=== PATIENT | female | born 1950 | race Caucasian/White ===

== ENCOUNTER → 2017-10-21 | Outpatient (CLI) | payer MEDICARE ==
[~2017-10-21] MED LIST: DENO60P SQ; LEVO50TA4 PO; LEVO75TA3 PO; NEXAVAR PO; VITA200013 PO
[2017-10-21 10:06] LABS: HEMATOCRIT 39.3 % (35.0-46.0); MEAN CELL VOLUME 88.2 FL (80.0-100.0); MEAN CORPUSCULAR HEMOGLOBIN 28.9 PG (27.0-34.0); MEAN CORPUSCULAR HGB CONC 32.8 % (32.0-36.0); PLATELET COUNT 178 TH/MM3 (150-450); RED BLOOD COUNT 4.46 MIL/MM3 (4.00-5.30); RED CELL DISTRIBUTION WIDTH 15.8 % (11.6-17.2); REVIEW FLAG FINAL; WHITE BLOOD COUNT 4.5 TH/MM3 (4.0-11.0)
[2017-10-21 10:27] LABS: ALT (GPT) 19 U/L (10-53); ANION GAP 4 MEQ/L (5-15); AST (GOT) 21 U/L (15-37); BICARBONATE 28.1 MEQ/L (21.0-32.0); BLOOD UREA NITROGEN 12 MG/DL (7-18); CHLORIDE 108 MEQ/L (98-107); GLOMERULAR FILTRATION RATE 62 ML/MIN (>89); GLUCOSE,FASTING 87 MG/DL (74-99); POTASSIUM 4.7 MEQ/L (3.5-5.1); SODIUM (NA) 140 MEQ/L (136-145)
[2017-10-21 10:35] LABS: ALKALINE PHOSPHATASE 57 U/L (45-117); FREE T4 1.25 NG/DL (0.76-1.46); HDL CHOLESTEROL 65.4 MG/DL (40.0-60.0); LDL CHOLESTEROL 170 MG/DL (0-99); LDL CHOLESTEROL DIRECT 170 MG/DL (0-99); TOTAL BILIRUBIN ADULT 0.5 MG/DL (0.2-1.0)
== END ==
LOC: PLAB 07:02
PROVIDERS: ATTEND Family Medicine
DX: R53.83 Other fatigue (principal); E78.4 Other hyperlipidemia; E03.8 Other specified hypothyroidism
CPT/HCPCS: 36415; 80053; 80061; 82306; 83721; 84439; 84443; 85027

== ENCOUNTER 2017-11-24 11:57 | Observation (INO) | payer MEDICARE ==
[2017-11-24] VITALS (10 sets, daily range): BP systolic 137–170; BP diastolic 74–94; PULSE 61–72; RESP 15–20; TEMP 97.6–98.1; O2SAT 94–100
[2017-11-24] MEDS ORDERED: SODIUM CHLORIDE 0.9% FLUSH 10 ML FLUSH IVF PRN (12:30)
[2017-11-24 12:47] LABS: AUTOMATED NEUTROPHIL # 2.5 TH/MM3 (1.8-7.7); BASOPHIL % 0.5 % (0.0-2.0); EOSINOPHIL # 0.1 TH/MM3 (0-0.4); EOSINOPHIL % 2.9 % (0.0-4.0); HEMATOCRIT 38.5 % (35.0-46.0); HEMOGLOBIN 12.5 GM/DL (11.6-15.3); LYMPH % 32.4 % (9.0-44.0); LYMPHOCYTE # 1.5 TH/MM3 (1.0-4.8); MEAN CELL VOLUME 86.9 FL (80.0-100.0); MEAN CORPUSCULAR HEMOGLOBIN 28.3 PG (27.0-34.0); MEAN CORPUSCULAR HGB CONC 32.5 % (32.0-36.0); MEAN PLATELET VOLUME 7.6 FL (7.0-11.0); MONO % 10.8 % (0.0-8.0); MONOCYTE # 0.5 TH/MM3 (0-0.9); NEUT % 53.4 % (16.0-70.0); PLATELET COUNT 163 TH/MM3 (150-450); RED BLOOD COUNT 4.43 MIL/MM3 (4.00-5.30); RED CELL DISTRIBUTION WIDTH 14.7 % (11.6-17.2); WHITE BLOOD COUNT 4.6 TH/MM3 (4.0-11.0)
[2017-11-24 12:52] LABS: CHLORIDE 104 MEQ/L (98-107); SODIUM (NA) 138 MEQ/L (136-145)
[2017-11-24 12:55] LABS: CALCIUM 8.6 MG/DL (8.5-10.1)
[2017-11-24 12:56] LABS: ALBUMIN 3.6 GM/DL (3.4-5.0); BICARBONATE 30.2 MEQ/L (21.0-32.0); BLOOD UREA NITROGEN 9 MG/DL (7-18); GLUCOSE,RANDOM 105 MG/DL (74-106); MAGNESIUM 2.2 MG/DL (1.5-2.5)
[2017-11-24 12:59] LABS: ALT (GPT) 18 U/L (10-53); AST (GOT) 22 U/L (15-37); CREATININE 0.92 MG/DL (0.50-1.00); GLOMERULAR FILTRATION RATE 61 ML/MIN (>89)
[2017-11-24 13:00] LABS: TOTAL BILIRUBIN ADULT 0.6 MG/DL (0.2-1.0)
[2017-11-24 13:01] LABS: TOTAL PROTEIN 7.2 GM/DL (6.4-8.2)
[2017-11-24 13:02] LABS: ALKALINE PHOSPHATASE 57 U/L (45-117)
[2017-11-24 13:04] LABS: TROPONIN I LESS THAN 0.02 NG/ML (0.02-0.05)
--- NOTE | 2017-11-24 13:04 | RADRPT ---
EXAM DATE/TIME: 11/24/2017 12:44 [facility] COMPARISON: No previous studies available for comparison. INDICATIONS : Cough and congestion for 5 days. MEDICAL HISTORY : Renal cancer. SURGICAL HISTORY : Right kidney removed. ENCOUNTER: Initial ACUITY: 4 - 6 days PAIN SCORE: 2/10 LOCATION: Bilateral chest FINDINGS: A single view of the chest demonstrates the lungs to be symmetrically aerated without evidence of mas s, infiltrate or effusion. The cardiomediastinal contours are unremarkable. Osseous structures are intact. CONCLUSION: 1. No active disease. Esequiel Garcia MD on November 24, 2017 at 13:01 Board Certified Radiologist. This report was verified electronically.
--- NOTE | 2017-11-24 14:32 | PD ---
HPI Chief Complaint: Cardiac Complaint Time Seen by Provider: 12:27 Travel History International Travel<30 days: No Contact w/Intl Traveler<30days: No Traveled to known affect area: No History of Present Illness HPI 67-year-old female patient presents to the ER today with bilateral arm pain starting last night, now is currently only having pressure-like pains in the left arm from the elbow to the shoulder area. She does not know any exacerbating or alleviating factors. She denies any shortness of breath. She states it feels like an ache and is currently a 3 out of 10. She denies any nausea, vomiting, or other symptoms. She does not remember any injuries. Modifying Factors: None Associated Signs & Symptoms: Bilateral arm pain, pressure-like, 3 out of 10 Risk Factors: Hypertension, high cholesterol PFSH Past Medical History Heart Rhythm Problems: No Cancer: Yes (Renal cell carcinoma) Cardiovascular Problems: No High Cholesterol: Yes Chemotherapy: Yes (ORAL MED) Chest Pain: No Congestive Heart Failure: No Diabetes: No Endocrine: No Gastrointestinal Disorders: Yes GERD: Yes Genitourinary: Yes Hepatitis: No Hiatal Hernia: No Hypertension: Yes (HX NOT ON MED; DUE TO CHEMO) Immune Disorder: No Implanted Vascular Access Dvce: No Kidney Stones: No Musculoskeletal: No Neurologic: No Psychiatric: No Reproductive: No Respiratory: No Radiation Therapy: No Renal Failure: Yes Thyroid Disease: No Past Surgical History Abdominal Surgery: No Cardiac Surgery: No Cholecystectomy: Yes Ear Surgery: No Endocrine Surgery: No Eye Surgery: No Genitourinary Surgery: Yes (APRIL 2011 RIGHT NEPHRECTOMY) Gynecologic Surgery: Yes (LAP TUBAL LIGATION) Neurologic Surgery: No Oral Surgery: No Pacemaker: No Thoracic Surgery: Yes (May 2011 4 Lymph nodes removed ) Other Surgery: Yes Social History Alcohol Use: No Tobacco Use: No Substance Use: No Allergies-Medications (Allergen,Severity, Reaction): Coded Allergies: aspirin (Unverified Adverse Reaction, Intermediate, PT HAS ONLY ONE KIDNEY WAS TOLD NOT TO TAKE ASPIRIN, 06/30/17) Reported Meds & Prescriptions Reported Meds & Active Scripts Active Reported Vitamin D (Cholecalciferol) 2,000 Unit Cap 2,000 Mg PO DAILY Levothyroxine (Levothyroxine Sodium) 50 Mcg Tab 50 Mcg PO ONCE WEEKLY Levothyroxine (Levothyroxine Sodium) 75 Mcg Tab 75 Mcg PO 6 TIMES WEEKLY [Nexavar] 200 Mg PO DAILY Review of Systems Except as stated in HPI: all other systems reviewed are Neg Physical Exam Narrative GENERAL: Well-developed elderly white female patient currently in mild distress. Awake and oriented 3. SKIN: Focused skin assessment warm/dry. HEAD: Atraumatic. Normocephalic. EYES: Pupils equal and round. No scleral icterus. No injection or drainage. ENT: No nasal bleeding or discharge. Mucous membranes pink and moist. NECK: Trachea midline. No JVD. Supple. CARDIOVASCULAR: Regular rate and rhythm. No murmur appreciated. Pulses are present and equal bilaterally. RESPIRATORY: No accessory muscle use. Clear to auscultation. Breath sounds equal bilaterally. GASTROINTESTINAL: Abdomen soft, non-tender, nondistended. Hepatic and splenic margins not palpable. MUSCULOSKELETAL: No obvious deformities. No clubbing. No cyanosis. No edema. NEUROLOGICAL: Awake and alert. No obvious cranial nerve deficits. Motor grossly within normal limits. Normal speech. PSYCHIATRIC: Appropriate mood and affect; insight and judgment normal. Data Data Last Documented VS Vital Signs Date Time Temp Pulse Resp B/P (MAP) Pulse Ox O2 Delivery O2 Flow Rate FiO2 11/24/17 14:09 62 20 145/89 (107) 94 11/24/17 13:01 2.00 11/24/17 12:05 98.1 Orders Orders Ckmb (Isoenzyme) Profile (11/24/17 12:27) Complete Blood Count With Diff (11/24/17 12:27) Comprehensive Metabolic Panel (11/24/17 12:27) Magnesium (Mg) (11/24/17 12:27) Prothrombin Time / Inr (Pt) (11/24/17 12:27) Act Partial Throm Time (Ptt) (11/24/17 12:27) Troponin I (11/24/17 12:27) Chest, Single Ap (11/24/17 12:27) Ecg Monitoring (11/24/17 12:27) Bilateral Bp Monitoring (11/24/17 12:27) Iv Access Insert/Monitor (11/24/17 12:27) Oximetry (11/24/17 12:27) Oxygen Administration (11/24/17 12:27) Sodium Chloride 0.9% Flush (Ns Flush) (11/24/17 12:30) CKMB (11/24/17 12:30) CKMB% (11/24/17 12:30) Aspirin (Aspirin) (11/24/17 14:45) Admit Order (Ed Use Only) (11/24/17 15:09) Labs Laboratory Tests Test 11/24/17 12:30 White Blood Count 4.6 TH/MM3 Red Blood Count 4.43 MIL/MM3 Hemoglobin 12.5 GM/DL Hematocrit 38.5 % Mean Corpuscular Volume 86.9 FL Mean Corpuscular Hemoglobin 28.3 PG Mean Corpuscular Hemoglobin Concent 32.5 % Red Cell Distribution Width 14.7 % Platelet Count 163 TH/MM3 Mean Platelet Volume 7.6 FL Neutrophils (%) (Auto) 53.4 % Lymphocytes (%) (Auto) 32.4 % Monocytes (%) (Auto) 10.8 % Eosinophils (%) (Auto) 2.9 % Basophils (%) (Auto) 0.5 % Neutrophils # (Auto) 2.5 TH/MM3 Lymphocytes # (Auto) 1.5 TH/MM3 Monocytes # (Auto) 0.5 TH/MM3 Eosinophils # (Auto) 0.1 TH/MM3 Basophils # (Auto) 0.0 TH/MM3 CBC Comment DIFF FINAL Differential Comment Prothrombin Time 10.0 SEC Prothromb Time International Ratio 1.0 RATIO Activated Partial Thromboplast Time 27.8 SEC Blood Urea Nitrogen 9 MG/DL Creatinine 0.92 MG/DL Random Glucose 105 MG/DL Total Protein 7.2 GM/DL Albumin 3.6 GM/DL Calcium Level 8.6 MG/DL Magnesium Level 2.2 MG/DL Alkaline Phosphatase 57 U/L Aspartate Amino Transf (AST/SGOT) 22 U/L Alanine Aminotransferase (ALT/SGPT) 18 U/L Total Bilirubin 0.6 MG/DL Sodium Level 138 MEQ/L Potassium Level 4.2 MEQ/L Chloride Level 104 MEQ/L Carbon Dioxide Level 30.2 MEQ/L Anion Gap 4 MEQ/L Estimat Glomerular Filtration Rate 61 ML/MIN Total Creatine Kinase 164 U/L Creatine Kinase MB 1.3 NG/ML Troponin I LESS THAN 0.02 NG/ML MDM Medical Decision Making Medical Screen Exam Complete: Yes Emergency Medical Condition: Yes Medical Record Reviewed: Yes Interpretation(s) EKG shows sinus bradycardia at a rate of 54 bpm with T-wave inversions in 2 and aVF. No signs of significant ST elevations. Laboratory Tests Test 11/24/17 12:30 Monocytes (%) (Auto) 10.8 % (0.0-8.0) Anion Gap 4 MEQ/L (5-15) Estimat Glomerular Filtration Rate 61 ML/MIN (>89) Troponin I LESS THAN 0.02 NG/ML Last 24 hours Impressions Chest X-Ray 11/24/17 1227 Signed Impressions: Service Date/Time: Friday, November 24, 2017 12:44 - CONCLUSION: 1. No active disease. Esequiel Garcia MD Differential Diagnosis Bilateral arm pain: Atypical chest pains versus musculoskeletal versus anginal equivalent Narrative Course EKG did not show any signs of acute ST elevation ME, T-wave inversions notable in inferior leads. Cardiac enzymes are negative. She is not having any chest pains. However, there is concern that this could be an atypical chest pain or anginal equivalent my plan would be to admit her to chest pain center for further evaluation. Diagnosis Primary Impression: Atypical chest pain Admitting Information Admitting Physician Requests: Admit Marianne Emmanuel MD Nov 24, 2017 14:32
[2017-11-24] MEDS ORDERED: ASPIRIN 325 MG TAB PO ONE (14:45)
--- NOTE | 2017-11-24 16:26 | EKG ---
Date Performed: 11/24/2017 Time Performed: 12:05:03 PTAGE: 67 years EKG: SINUS BRADYCARDIA NONSPECIFIC T-WAVE ABNORMALITY BORDERLINE ECG PREVIOUS TRACING : 01/06/2012 06.50 Compared to prior tracing no significant change DOCTOR: Deangelo Trevino Interpretating Date/Time 11/24/2017 16:25:57
[2017-11-24] MEDS ORDERED: BISACODYL 10 MG SUPP RECTAL PRN (16:30)
[2017-11-24] MEDS ORDERED: SENNOSIDES 8.6 MG TAB PO PRN (16:30)
[2017-11-24] MEDS ORDERED: SODIUM CHLORIDE 0.9% FLUSH 10 ML FLUSH IV FLUSH PRN (16:30)
[2017-11-24] MEDS ORDERED: NALOXONE HCL 0.4 MG/ML AMP IV PUSH PRN (16:30)
--- NOTE | 2017-11-24 16:33 | HHI.HP ---
[facility] Primary Care Physician Gerardo Pleitez MD Admission Diagnosis Chest pain Diagnoses: (1) Atypical chest pain Diagnosis: Principal Chief Complaint: Bilateral upper arm pain Travel History International Travel<30 Days: No Contact w/Intl Traveler <30 Da: No Traveled to Known Affected Are: No History of Present Illness This is a pleasant 67-year-old female patient with unknown medical history of stage IV right renal cell carcinoma currently in remission, hyperlipidemia, hypertension and thyroid disease who presented to the ED with complaints of bilateral arm pain. Patient states that she was sitting on her couch this morning she developed pain in both arms between her elbow and shoulder area. She states that the pain in the right arm lasted roughly 15 minutes and the left arm was roughly around two hours. She denies any tingling or numbness in her arms or hands. Denies any associated chest pain or discomfort. Denies any associated nausea, vomiting, shortness of breath or diaphoresis. She denies any radiation of this pain up her neck or jaw or her back. Patient does state that she follows with the chiropractor once a week, gets adjusted as needed. She has also been undergoing massage therapy in the outpatient setting. Patient states that the pain this morning was characterized as an aching pain, rated a 3/10 on pain scale. Denies ever having this pain before. Patient does admit that she visited her PCP yesterday for an upper respiratory infection with complaints of sore throat and low-grade fevers and productive cough. Was prescribed cough medicine and sent home. Denies ever having any cardiac history , denies any previous stress testing. Patient does follow with Dr. Jimenez for her renal cell carcinoma, currently takes her daily chemotherapy pill and is in remission. Review of Systems Constitutional: COMPLAINS OF: Fever, Chills, DENIES: Fatigue Eyes: DENIES: Blurred vision Ears, nose, mouth, throat: DENIES: Vertigo Respiratory: COMPLAINS OF: Cough, Sputum production, DENIES: Shortness of breath Cardiovascular: DENIES: Chest pain, Palpitations Gastrointestinal: DENIES: Abdominal pain, Constipation, Diarrhea, Nausea, Vomiting Musculoskeletal: DENIES: Joint pain Psychiatric: DENIES: Anxiety Except as stated in HPI: all other systems reviewed are Neg Bilateral upper arm aching Past Family Social History Past Medical History Thyroid disease Renal cell carcinoma Hyperlipidemia Hypertension Past Surgical History Cholecystectomy Right nephrectomy Tubal ligation Lymph node removals Reported Medications Reported Meds & Active Scripts Active Reported Vitamin D (Cholecalciferol) 2,000 Unit Cap 2,000 Mg PO DAILY Levothyroxine (Levothyroxine Sodium) 50 Mcg Tab 50 Mcg PO ONCE WEEKLY Levothyroxine (Levothyroxine Sodium) 75 Mcg Tab 75 Mcg PO 6 TIMES WEEKLY [Nexavar] 200 Mg PO DAILY Allergies: Coded Allergies: aspirin (Unverified Adverse Reaction, Intermediate, PT HAS ONLY ONE KIDNEY WAS TOLD NOT TO TAKE ASPIRIN, 06/30/17) Active Ordered Medications Current Medications Medications (Trade) Dose Ordered Sig/Carley Route Start Time Stop Time Status Last Admin (NS Flush) 2 ml UNSCH PRN IVF 11/24/17 12:30 Family History Paternal aunt Maternal medical history not significant for any cardiovascular disease. Father did have history of kidney carcinoma, at the age of seventy[age]four years old. Social History Patient denies any current tobacco use, quit fifteen years ago. Does admit to occasional alcohol use. Denies any illicit drug use. Physical Exam Vital Signs Vital Signs Date Time Temp Pulse Resp B/P (MAP) Pulse Ox O2 Delivery O2 Flow Rate FiO2 11/24/17 15:27 69 20 151/79 (103) 98 11/24/17 14:09 62 20 145/89 (107) 94 11/24/17 13:01 68 20 140/86 (104) 100 145/94 (111) 11/24/17 13:01 2.00 11/24/17 12:31 98 11/24/17 12:05 98.1 65 20 170/86 (114) 98 Physical Exam GENERAL: is a well-nourished, well-developed patient, lying in bed in no apparent distress. SKIN: No rashes, ecchymoses or lesions. Warm and dry. HEAD: Atraumatic. Normocephalic. EYES: Pupils equal round and reactive. Extraocular motions intact. No scleral icterus. No injection or drainage. ENT: Nose without bleeding, purulent drainage or septal hematoma. Throat without erythema, tonsillar hypertrophy or exudate. Uvula midline. Airway patent. NECK: Trachea midline. No JVD. Supple. CARDIOVASCULAR: Regular rate and rhythm without murmurs, gallops, or rubs. No reproducible chest pain RESPIRATORY: Clear to auscultation. Breath sounds equal bilaterally. No wheezes , rales, or rhonchi. GASTROINTESTINAL: Abdomen soft, non-tender, nondistended. No guarding. MUSCULOSKELETAL: Extremities without clubbing, cyanosis, or edema. No joint tenderness, effusion, or edema noted. NEUROLOGICAL: Awake and alert. Cranial nerves II through XII intact. Motor and sensory grossly within normal limits. Five out of 5 muscle strength in all muscle groups. Normal speech. Laboratory Laboratory Tests Test 11/24/17 12:30 White Blood Count 4.6 Red Blood Count 4.43 Hemoglobin 12.5 Hematocrit 38.5 Mean Corpuscular Volume 86.9 Mean Corpuscular Hemoglobin 28.3 Mean Corpuscular Hemoglobin Concent 32.5 Red Cell Distribution Width 14.7 Platelet Count 163 Mean Platelet Volume 7.6 Neutrophils (%) (Auto) 53.4 Lymphocytes (%) (Auto) 32.4 Monocytes (%) (Auto) 10.8 Eosinophils (%) (Auto) 2.9 Basophils (%) (Auto) 0.5 Neutrophils # (Auto) 2.5 Lymphocytes # (Auto) 1.5 Monocytes # (Auto) 0.5 Eosinophils # (Auto) 0.1 Basophils # (Auto) 0.0 CBC Comment DIFF FINAL Differential Comment Prothrombin Time 10.0 Prothromb Time International Ratio 1.0 Activated Partial Thromboplast Time 27.8 Blood Urea Nitrogen 9 Creatinine 0.92 Random Glucose 105 Total Protein 7.2 Albumin 3.6 Calcium Level 8.6 Magnesium Level 2.2 Alkaline Phosphatase 57 Aspartate Amino Transf (AST/SGOT) 22 Alanine Aminotransferase (ALT/SGPT) 18 Total Bilirubin 0.6 Sodium Level 138 Potassium Level 4.2 Chloride Level 104 Carbon Dioxide Level 30.2 Anion Gap 4 Estimat Glomerular Filtration Rate 61 Total Creatine Kinase 164 Creatine Kinase MB 1.3 Troponin I LESS THAN 0.02 Result Diagram: 11/24/17 1230 11/24/17 1230 Imaging Last Impressions Chest X-Ray 11/24/17 1227 Signed Impressions: Service Date/Time: Friday, November 24, 2017 12:44 - CONCLUSION: 1. No active disease. Esequiel Garcia MD Septic Shock Reassessment Septic shock perfusion: reassessment completed Caprini VTE Risk Assessment Caprini VTE Risk Assessment: Mod/High Risk (score >= 2) Caprini Risk Assessment Model Point Value = 1 Point Value = 2 Point Value = 3 Point Value = 5 Age 41-60 Minor surgery BMI > 25 kg/m2 Swollen legs Varicose veins or History of unexplained or recurrent spontaneous Oral contraceptives or hormone replacement Sepsis (< 1 month) Serious lung disease, including pneumonia (< 1 month) Abnormal pulmonary function Acute myocardial infarction Congestive heart failure (< 1 month) History of inflammatory bowel disease Medical patient at bed rest Age 61-74 Arthroscopic surgery Major open surgery (> 45 min) Laparoscopic surgery (> 45 min) Malignancy Confined to bed (> 72 hours) Immobilizing plaster cast Central venous access Age >= 75 History of VTE Family history of VTE Factor V Leiden Prothrombin [id number] Lupus anticoagulant Anticardiolipin antibodies Elevated serum homocysteine Heparin-induced thrombocytopenia Other congenital or acquired thrombophilia Stroke (< 1 month) Elective arthroplasty Hip, pelvis, or leg fracture Acute spinal cord injury (< 1 month) Prophylaxis Regimen Total Risk Factor Score Risk Level Prophylaxis Regimen 0-1 Low Early ambulation 2 Moderate Order ONE of the following: *Sequential Compression Device (SCD) *Heparin 5000 units SQ BID 3-4 Higher Order ONE of the following medications: *Heparin 5000 units SQ TID *Enoxaparin/Lovenox 40 mg SQ daily (WT < 150 kg, CrCl > 30 mL/min) *Enoxaparin/Lovenox 30 mg SQ daily (WT < 150 kg, CrCl > 10-29 mL/min) *Enoxaparin/Lovenox 30 mg SQ BID (WT < 150 kg, CrCl > 30 mL/min) AND/OR *Sequential Compression Device (SCD) 5 or more Highest Order ONE of the following medications: *Heparin 5000 units SQ TID (Preferred with Epidurals) *Enoxaparin/Lovenox 40 mg SQ daily (WT < 150 kg, CrCl > 30 mL/min) *Enoxaparin/Lovenox 30 mg SQ daily (WT < 150 kg, CrCl > 10-29 mL/min) *Enoxaparin/Lovenox 30 mg SQ BID (WT < 150 kg, CrCl > 30 mL/min) AND *Sequential Compression Device (SCD) Assessment and Plan Problem List: (1) Atypical chest pain ICD Code: R07.89 - Other chest pain Status: Acute Plan: Likely secondary to cervical nerve impingement versus musculoskeletal in nature Patient has been admitted to the chest pain center. Currently denies any previous or present chest pain. Does complain of left arm achiness. Serial EKGs and serial troponins have been ordered for ruling out purposes. Initial troponin flat, continue to follow trend. EKG reviewed showing normal sinus rhythm with controlled heart rate, there is no small T-wave inversions in inferior leads. Aspirin was given in the ED. CBC and BMP reviewed, essentially unremarkable. Chest x-ray reviewed, no acute cardiopulmonary disease. We'll order a cervical x-ray to further evaluate, follow-up. If cardiac enzymes are and that patient will likely undergo a cardiac stress test in the a.m., to rule out any further ischemia. Supportive care. Supplemental O2 as needed. Patient is stable at this time and agreeable to the plan. (2) Hypertension ICD Code: I10 - Essential (primary) hypertension Plan: Patient states that she does not take any medicines for her high blood pressure and has been diet controlled. Patient did present with hypertension, systolic in the 170s. Will continue to monitor, may be likely due to pain. When necessary clonidine available as needed. Monitor BP trends. DVT prophylaxis: SCDs. Diana Sandoval Nov 24, 2017 16:33
[2017-11-24] MEDS ORDERED: ACETAMINOPHEN 325 MG TAB PO PRN (17:00)
--- NOTE | 2017-11-24 17:30 | RADRPT ---
EXAM DATE/TIME: 11/24/2017 17:07 [facility] COMPARISON: No previous studies available for comparison. INDICATIONS : Neck pain that moves into both arms for 2 months. MEDICAL HISTORY : None. INEZ osteopenia with no underlying bony abnormality. GICAL HISTORY : None. ENCOUNTER: Initial ACUITY: 2 months PAIN SCORE: 4/10 LOCATION: Cervical. FINDINGS: Five view examination was performed. There is normal alignment and curvature of the vertebral bodies down to the level of C7. No evidence of fracture or subluxation. Vertebral body height is normal. The disc spaces are maintained. The prevertebral soft tissues are of normal thickness. The atlanto -axial articulation is intact. The bony neural foramen are patent bilaterally. There is mild osteope rachid. Mild calcifications are noted in the right carotid arteries. CONCLUSION: 1. Osteopenia with no underlying bony abnormality. 2. The disc spaces are well preserved and the neural foramina appear patent. 3. Mild calcification right carotid artery. Luisito Gallegos MD on November 24, 2017 at 17:25 Board Certified Radiologist. This report was verified electronically.
[2017-11-24] MEDS ORDERED: ONDANSETRON HCL 4 MG/2 ML VIAL IVP PRN (18:00)
[2017-11-24] MEDS ORDERED: guaiFENesin/CODEINE SYRUP 200 MG/20 MG/10 ML CUP PO PRN (18:45)
[2017-11-24 19:23] LABS: TROPONIN I LESS THAN 0.02 NG/ML (0.02-0.05)
[2017-11-24] MEDS: DOCUSATE SODIUM 50 MG/SENNA 8.6 MG TAB PO SCH ×2 (21:00→21:04)
[2017-11-24] MEDS ORDERED: [UNRECOGNIZED DRUG - OTHER] PO SCH ×2 (21:00)
[2017-11-24] MEDS ORDERED: MAGNESIUM HYDROXIDE SUSP 30 ML CUP PO PRN (21:00)
[2017-11-24] MEDS ORDERED: SORAFENIB PO SCH ×2 (21:00)
[2017-11-24] MEDS: SODIUM CHLORIDE 0.9% FLUSH 10 ML FLUSH IV FLUSH SCH (21:04)
[2017-11-24 22:40] LABS: TROPONIN I LESS THAN 0.02 NG/ML (0.02-0.05)
[2017-11-25] VITALS: BP 116/85; PULSE 66; RESP 20; TEMP 97.6; O2SAT 99
[2017-11-25 04:00] VITALS: BP 141/87; PULSE 67; RESP 20; TEMP 97.8; O2SAT 98
[2017-11-25 05:42] LABS: CHLORIDE 106 MEQ/L (98-107); SODIUM (NA) 141 MEQ/L (136-145)
[2017-11-25 05:46] LABS: CALCIUM 8.8 MG/DL (8.5-10.1)
[2017-11-25 05:47] LABS: ALBUMIN 3.4 GM/DL (3.4-5.0); BICARBONATE 28.8 MEQ/L (21.0-32.0); BLOOD UREA NITROGEN 13 MG/DL (7-18); GLUCOSE,RANDOM 92 MG/DL (74-106)
[2017-11-25 05:50] LABS: ALT (GPT) 15 U/L (10-53); AST (GOT) 21 U/L (15-37); CREATININE 0.91 MG/DL (0.50-1.00); GLOMERULAR FILTRATION RATE 62 ML/MIN (>89)
[2017-11-25 05:52] LABS: TOTAL BILIRUBIN ADULT 0.6 MG/DL (0.2-1.0)
[2017-11-25 05:53] LABS: ALKALINE PHOSPHATASE 55 U/L (45-117)
[2017-11-25] MEDS ORDERED: LEVOTHYROXINE SODIUM 75 MCG TAB PO SCH (06:00)
[2017-11-25 07:30] VITALS: BP 145/82; PULSE 61; RESP 20; TEMP 97.5; O2SAT 97
[2017-11-25 08:22] VITALS: O2SAT 98
[2017-11-25] MEDS: DOCUSATE SODIUM 50 MG/SENNA 8.6 MG TAB PO SCH (09:00)
[2017-11-25] MEDS: SODIUM CHLORIDE 0.9% FLUSH 10 ML FLUSH IV FLUSH SCH (09:00)
--- NOTE | 2017-11-25 09:13 | EKG ---
Date Performed: 11/24/2017 Time Performed: 21:24:53 PTAGE: 67 years EKG: Sinus rhythm NONSPECIFIC ST & T-WAVE ABNORMALITY BORDERLINE ECG PREVIOUS TRACING : 11/24/2017 17.03 Since previous tracing, no significant change noted DOCTOR: Otf Aguero Interpretating Date/Time 11/25/2017 09:12:12
--- NOTE | 2017-11-25 09:21 | EKG ---
Date Performed: 11/24/2017 Time Performed: 17:03:29 PTAGE: 67 years EKG: Sinus rhythm NONSPECIFIC T-WAVE ABNORMALITY BORDERLINE ECG PREVIOUS TRACING : 11/24/2017 12.05 Since previous tracing, no significant change noted DOCTOR: Otf Aguero Interpretating Date/Time 11/25/2017 09:19:02
--- NOTE | 2017-11-25 09:25 | HHI.PR ---
Subjective Remarks Follow up cardiac complaint. Patient seen and examined, lying comfortably in bed. Denies any chest pain or bilateral upper arm pain. Denies any shortness of breath. Denies any acute events overnight. Slept well. Afebrile. Vital signs stable. Cardiac treadmill stress test performed, images sent over to cardiology just call, no ischemia noted. Objective Vitals Vital Signs Date Time Temp Pulse Resp B/P (MAP) Pulse Ox O2 Delivery O2 Flow Rate FiO2 11/25/17 08:22 98 21 11/25/17 07:30 97.5 61 20 145/82 (103) 97 11/25/17 04:00 97.8 67 20 141/87 (105) 98 11/25/17 00:00 97.6 66 20 116/85 (95) 99 11/24/17 20:00 97.6 61 20 140/80 (100) 94 11/24/17 20:00 61 11/24/17 19:30 98 21 11/24/17 17:48 98 21 11/24/17 17:27 11/24/17 16:44 72 20 145/91 (109) 96 11/24/17 16:00 97.7 68 15 137/74 (95) 97 11/24/17 15:27 69 20 151/79 (103) 98 11/24/17 14:09 62 20 145/89 (107) 94 11/24/17 13:01 68 20 140/86 (104) 100 145/94 (111) 11/24/17 13:01 2.00 11/24/17 12:31 98 11/24/17 12:05 98.1 65 20 170/86 (114) 98 I/O 11/24/17 11/24/17 11/24/17 11/25/17 11/25/17 11/25/17 07:00 15:00 23:00 07:00 15:00 23:00 Intake Total 60 ml Balance 60 ml Intake Oral 60 ml # Voids 1 # Bowel Movements 0 Result Diagram: 11/24/17 1230 11/25/17 0450 Imaging Last Impressions Chest X-Ray 11/24/17 1227 Signed Impressions: Service Date/Time: Friday, November 24, 2017 12:44 - CONCLUSION: 1. No active disease. Esequiel Garcia MD Cervical Spine X-Ray 11/24/17 0000 Signed Impressions: Service Date/Time: Friday, November 24, 2017 17:07 - CONCLUSION: 1. Osteopenia with no underlying bony abnormality. 2. The disc spaces are well preserved and the neural foramina appear patent. 3. Mild calcification right carotid artery. Luisito Gallegos MD Objective Remarks GENERAL: is a well-nourished, well-developed patient, lying in bed in no apparent distress. SKIN: No rashes, ecchymoses or lesions. Warm and dry. HEAD: Atraumatic. Normocephalic. EYES: Pupils equal round and reactive. Extraocular motions intact. No scleral icterus. No injection or drainage. ENT: Nose without bleeding, purulent drainage or septal hematoma. Throat without erythema, tonsillar hypertrophy or exudate. Uvula midline. Airway patent. NECK: Trachea midline. No JVD. Supple. CARDIOVASCULAR: Regular rate and rhythm without murmurs, gallops, or rubs. No reproducible chest pain RESPIRATORY: Clear to auscultation. Breath sounds equal bilaterally. No wheezes , rales, or rhonchi. GASTROINTESTINAL: Abdomen soft, non-tender, nondistended. No guarding. MUSCULOSKELETAL: Extremities without clubbing, cyanosis, or edema. No joint tenderness, effusion, or edema noted. NEUROLOGICAL: Awake and alert. Cranial nerves II through XII intact. Motor and sensory grossly within normal limits. Five out of 5 muscle strength in all muscle groups. Normal speech. A/P Problem List: (1) Atypical chest pain ICD Code: R07.89 - Other chest pain Status: Acute Plan: Likely secondary to musculoskeletal in nature Patient has been admitted to the chest pain center. Currently denies any previous or present chest pain. Denies any arm achiness or pain. Serial EKGs and serial troponins have been ordered for ruling out purposes. Serial troponins flat. EKG reviewed showing normal sinus rhythm with controlled heart rate, there are some T-wave inversions in inferior leads. Aspirin was given in the ED. CBC and BMP reviewed, essentially unremarkable. Chest x-ray reviewed, no acute cardiopulmonary disease. Cervical x-ray reviewed, showing some osteopenia no underlying bony abnormality. Well-preserved disc spaces. Supportive care. Comfortably on room air. Patient underwent cardiac treadmill stress tests, no acute events. Images sent over to on-call manager behavior, Dr. Aguero, with no ischemia noted. He should obtain about results, encouraged to return to ED if pain recurs or worsens. Encouraged to follow-up with PCP upon discharge. She is stable at this time and agreeable to the plan. (2) Hypertension ICD Code: I10 - Essential (primary) hypertension Plan: Patient states that she does not take any medicines for her high blood pressure and has been diet controlled. Patient did present with hypertension, systolic in the 170s. BP now stable. DVT prophylaxis: SCDs. Discharge Planning Patient will be discharged today. Encouraged to follow-up with PCP, follow lipid panel. Some mild calcification of the right carotid artery noted on cervical x-ray. Encouraged to follow-up with PCP. Diana Sandoval Nov 25, 2017 09:25
[2017-11-25] MEDS ORDERED: guaiFEN-COD 200-20 MG/10ML LIQ PO (09:33)
--- NOTE | 2017-11-25 09:34 | HHI.DCPOC ---
Discharge Care Plan Diagnosis: (1) Atypical chest pain (2) Hypertension Your Health Problems Are: Chest Pain Goals to Promote Your Health * To prevent worsening of your condition and complications * To maintain your health at the optimal level Directions to Meet Your Goals Take your medications as prescribed Follow your dietary instruction Follow activity as directed Keep your appointments as scheduled Take your immunizations and boosters as scheduled If your symptoms worsen call your PCP, if no PCP go to Urgent Care Center or Emergency Room Smoking is Dangerous to Your Health. Avoid second hand smoke Call the 24-hour hour crisis hotline for domestic abuse at Diana Sandoval Nov 25, 2017 09:33
[2017-11-25 11:30] VITALS: BP 140/92; PULSE 80; RESP 20; TEMP 98.4; O2SAT 96
[2017-11-25 13:28] LABS: CHOLESTEROL/ HDL RATIO 4.48 RATIO
--- NOTE | 2017-11-27 16:15 | TR ---
Date Performed: 11/25/2017 Time Performed: 08:55:02 DOCTOR: Otf Aguero DRUG LIST: CLINICAL HISTORY: REASON FOR TEST: Chest pain REASON FOR ENDING: OBSERVATION: CONCLUSION: Ash protocol performed, test stopped secondary to reaching target heart rate. Good BP response. Great exercise tolerance. No reproducible chest discomfort. Occasional PVCs. No ST pacheco ges to indicate any ischemia.Maximum BD=360 Target HR Yrsdbrbr=918.0% Maximum UY=238/80 Total Exercis e Time=6:31 COMMENTS: Patient exercised using the Ash protocol. No electrocardiographic changes were seen to suggest ischemia. Hemodynamic response to exercise was normal. No significant arrhythmia was prese nt.
== END 2017-11-25 12:04 | disposition home or self-care (01) ==
LOC: PHED 11:57 → PHEDA 15:10 → PH3B 17:25
PROVIDERS: ADMIT Hospitalist; ATTEND Hospitalist
DX: R07.89 Other chest pain (principal); M79.601 Pain in right arm; M79.602 Pain in left arm; M54.2 Cervicalgia; R00.1 Bradycardia, unspecified; J06.9 Acute upper respiratory infection, unspecified; I10 Essential (primary) hypertension; E78.00 Pure hypercholesterolemia, unspecified; E07.9 Disorder of thyroid, unspecified; M85.80 Other specified disorders of bone density and structure, unspecified site; Z87.891 Personal history of nicotine dependence; Z85.528 Personal history of other malignant neoplasm of kidney; Z79.899 Other long term (current) drug therapy
CPT/HCPCS: 71045; 72050; 80053; 80061; 82550; 82552; 83735; 84484; 85025; 85610; 85730; 93005; 93017; 99285; G0378